=== PATIENT | male | born 1950 | race Hispanic/Latino ===

== ENCOUNTER 2016-08-10 10:02 | Emergency (ER) | payer OTHER ==
[2016-08-10 10:44] LABS: Basophils % (Auto) 0.6 % (0.0-1.8); Eosinophils % (Auto) 0.8 % (0.0-4.3); Hematocrit 43.3 % (35.5-45.6); Hemoglobin 14.5 gm/dl (11.8-15.2); Mean Corpuscular HGB Conc 33 % (32-34); Mean Corpuscular Hemoglobin 29 pg (28-32); Mean Corpuscular Volume 87 fl (84-94); Platelet Count 290 K/mm3 (140-440); Red Blood Count 4.96 M/mm3 (3.65-5.03); Red Cell Distribution Width 13.2 % (13.2-15.2)
[2016-08-10 10:48] LABS: Anion Gap 17 mmol/L; Blood Urea Nitrogen 17 mg/dL (9-20); Carbon Dioxide 25 mmol/L (22-30); Chloride 102.5 mmol/L (98-107); Glucose 97 mg/dL (75-100); Sodium 140 mmol/L (137-145)
--- NOTE | 2016-08-10 10:53 | Emergency Department Report ---
Entered by SALLY GREWAL, acting as scribe for HADLEY COUCH PA. 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 The chest pain is characterized as intermittent and throbbing, 6/10 severity. The chest pain began when the patient was sitting at his desk. Associated symptom of SOB, but he denies nausea and vomiting. Patient has had chest pain previously but this episode is more severe. Patient states he is compliant with his medications, including low dosage Benicar, and took his medication this morning. Noted the patient worked out this morning prior to the onset of the symptoms. No other complaints. - ROS Review of Systems: CARDIAC: positive for chest pain RESPIRATORY: positive for SOB ABD: negative for nausea and vomiting All other systems reviewed and negative - Exam Vital Signs: Vital Signs 08/10/16 10:15 Temperature 97.7 F Pulse Rate 87 Respiratory 20 Rate Blood Pressure 158/93 O2 Sat by Pulse 99 Oximetry Physical Exam: Constitutional: Non toxic appearing, NAD. Cardiovascular: Normal rate and rhythm with normal S1/S2 sounds. Respiratory: No respiratory distress. Lung sounds clear to auscultation bilaterally. Abdomen: Abdomen is non-distended, soft with no tenderness to palpation in all quadrants. MSE screening note: Focused history and physical exam performed. Due to findings the following was ordered: ED Medical Decision Making - Lab Data Result diagrams: 08/10/16 10:21 08/10/16 10:21 - Medical Decision Making Alert and oriented x3. Chest pain protocol was ordered. EKG: Normal sinus rhythm ,no STEMI Will monitor labs if all labs are normal patient can be seen by fast track provider otherwise Patient to be evaluated by ED physician No acute distress, patient is stable. ED Disposition for MSE Condition: Stable This documentation as recorded by the scribe,SALLY GREWAL,accurately reflects the service I personally performed and the decisions made by KHOA caldwell OYINLOLA A, PA.
[2016-08-10] MEDS ORDERED: BABY ASPIRIN PO ONE (18:14)
--- NOTE | 2016-08-10 18:14 | Emergency Department Report ---
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 The chest pain is characterized as intermittent and throbbing, 6/10 severity. The chest pain began when the patient was sitting at his desk and lasted approximately 45 minutes. Patient has had chest pain previously but this episode is more severe. Patient states he is compliant with his medications, including low dosage Benicar, and took his medication this morning. Noted the patient worked out this morning prior to the onset of the symptoms. Pt does report he flew to [place] 2 weeks ago, but denies any leg pain or SOB. Pt last had chest pain in 2006 and had a full cardiac workup including stress tests which were all normal as per patient. Otherwise no fevers, chills, SOB, NVD, abd pain, calf pain or swelling, trauma, falls, syncope, or sick contacts. - Related Data Allergies Allergy/AdvReac Type Severity Reaction Status Date / Time No Known Allergies Allergy Unverified 08/10/16 10:15 DAVID score - David Score Age > 65: (0) No Aspirin use within the Past 7 Days: (1) Yes 3 or more CAD Risk Factors: (0) No 2 or more Angina events in past 24 hrs: (0) No Known CAD with more than 50% Stenosis: (0) No Elevated Cardiac Markers: (0) No ST Deviation Greater than 0.5mm: (0) No DAVID Score: 1 ED Review of Systems ROS: Stated complaint: CHEST PAIN Other details as noted in HPI ED Past Medical Hx - Past Medical History Previous Medical History?: Yes Hx Hypertension: Yes Additional medical history: High cholesterol - Surgical History Past Surgical History?: Yes Additional Surgical History: cervical spine surgery with a fusion 2005 - Social History Smoking Status: Former Smoker Substance Use Type: Alcohol, Non Opiate Pain, Prescribed ED Physical Exam - General Limitations: No Limitations ED Course Vital Signs 08/10/16 08/10/16 10:15 17:30 Temperature 97.7 F 98 F Pulse Rate 87 68 Respiratory 20 16 Rate Blood Pressure 158/93 Blood Pressure 131/76 [Left] O2 Sat by Pulse 99 99 Oximetry - Reevaluation(s) Reevaluation #1: 08/10/16 19:48 Pt re-evaluated, no chest pain since being in the ED. 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 ED Disposition Clinical Impression: Chest pain Disposition: DC-01 TO HOME OR SELFCARE Is pt being admited?: No Condition: Stable Instructions: Chest Pain (ED) Referrals: PRIMARY CARE, [Primary Care Provider] - 3-5 Days
[2016-08-10 20:07] VITALS: BP 135/86
--- NOTE | 2016-08-11 09:07 | XRay Report ---
Chest 2 views. History: Chest pain. Findings: The heart and lungs reveal no acute or significant abnormalities.
== END 2016-08-10 20:07 | disposition home or self-care (01) ==
LOC: ED 10:02
DX: R07.9 Chest pain, unspecified (principal); I10 Essential (primary) hypertension; E78.00 Pure hypercholesterolemia, unspecified; Z87.891 Personal history of nicotine dependence
CPT/HCPCS: 36415; 71020; 80048; 84484; 85025; 85379; 93005; 93010; 99285